=== PATIENT | male | born 1990 | race Caucasian/White ===

== ENCOUNTER 2017-08-29 00:51 | Emergency (ER) | payer SELFPAY ==
[2017-08-29 01:34] VITALS: BP 139/95
[2017-08-29 01:54] LABS: Basophils % (Auto) 0.9 % (0.0-1.8); Eosinophils % (Auto) 0.8 % (0.0-4.3); Hematocrit 50.8 % (35.5-45.6); Hemoglobin 17.5 gm/dl (11.8-15.2); Mean Corpuscular HGB Conc 34 % (32-34); Mean Corpuscular Hemoglobin 32 pg (28-32); Mean Corpuscular Volume 94 fl (84-94); Platelet Count 343 K/mm3 (140-440); Red Blood Count 5.43 M/mm3 (3.65-5.03); Red Cell Distribution Width 14.4 % (13.2-15.2); White Blood Count 9.1 K/mm3 (4.5-11.0)
[2017-08-29 02:10] LABS: Alanine Aminotransferase 16 units/L (7-56); Albumin 4.8 g/dL (3.9-5); Albumin/Globulin Ratio 1.3 %; Alkaline Phosphatase 80 units/L (35-129); Anion Gap 23 mmol/L; BUN/Creatinine Ratio 16; Blood Urea Nitrogen 11 mg/dL (9-20); Calcium 9.5 mg/dL (8.4-10.2); Carbon Dioxide 22 mmol/L (22-30); Chloride 99.4 mmol/L (98-107); Glucose 105 mg/dL (75-100); Lipase 20 units/L (13-60); Potassium 4.1 mmol/L (3.6-5.0); Sodium 140 mmol/L (137-145); Total Protein 8.5 g/dL (6.3-8.2)
== END 2017-08-29 05:00 | disposition left against medical advice (07) ==
LOC: ED 00:51
DX: R10.9 Unspecified abdominal pain (principal); Z53.21 Procedure and treatment not carried out due to patient leaving prior to being seen by health care provider
CPT/HCPCS: 36415; 80053; 83690; 85025

== ENCOUNTER 2020-02-04 20:27 | Emergency (ER) | payer SELFPAY ==
[2020-02-04 20:32] VITALS: BP 109/76
[2020-02-04 21:02] LABS: Basophils % (Auto) 0.3 % (0.0-1.8); Eosinophils # (Auto) 0.1 K/mm3 (0.0-0.4); Hematocrit 45.8 % (35.5-45.6); Hemoglobin 15.6 gm/dl (11.8-15.2); Lymphocytes # (Auto) 1.1 K/mm3 (1.2-5.4); Lymphocytes % (Auto) 13.7 % (13.4-35.0); Mean Corpuscular HGB Conc 34 % (32-34); Mean Corpuscular Volume 92 fl (84-94); Monocytes # (Auto) 0.2 K/mm3 (0.0-0.8); Monocytes % (Auto) 2.5 % (0.0-7.3); Platelet Count 326 K/mm3 (140-440); Red Blood Count 4.98 M/mm3 (3.65-5.03); Red Cell Distribution Width 14.2 % (13.2-15.2)
[2020-02-04 21:25] LABS: Alanine Aminotransferase 15 units/L (7-56); Albumin 4.9 g/dL (3.9-5); BUN/Creatinine Ratio 10; Blood Urea Nitrogen 10 mg/dL (9-20); Calcium 9.7 mg/dL (8.4-10.2); Hemolysis Index 6
--- NOTE | 2020-02-04 22:14 | XRay Report ---
CHEST 1 VIEW INDICATION: cough. COMPARISON: None FINDINGS: Support devices: None. Heart: Within normal limits. Lungs/Pleura: No acute air space or interstitial disease. Additional findings: None. IMPRESSION: 1. No acute findings. Signer Name: Vik Verma MD Signed: 02/04/2020 10:10 PM Workstation Name: [id number]
[2020-02-04] MEDS ORDERED: predniSONE 20 MG TAB PO ONE (22:48)
[2020-02-04] MEDS ORDERED: ACETAMINOPEN W/CODEINE 120-12MG ORAL LIQD 5 ML PO ONE (22:48)
[2020-02-04] MEDS ORDERED: FAMOTIDINE 20 MG/2 ML INJ IV ONE (23:08)
--- NOTE | 2020-02-04 23:24 | Emergency Department Report ---
ED Abdominal Pain HPI - General Chief Complaint: Abdominal Pain Stated Complaint: ABD PAIN Time Seen by Provider: 02/04/20 20:34 Source: patient Mode of arrival: Ambulatory Limitations: No Limitations - History of Present Illness Initial Comments: This is a 29-year-old male who presents the ED complaining of upper abdominal pain for the past couple of days. MD Complaint: abdominal pain - Related Data Previous Rx's Medication Instructions Recorded Last Taken Type Dicyclomine [Bentyl] 20 mg PO TID #20 tablet 02/05/20 Unknown Rx Famotidine [Pepcid] 20 mg PO BID #20 tablet 02/05/20 Unknown Rx Metoclopramide [Reglan] 10 mg PO TID #30 tab 02/05/20 Unknown Rx Allergies Allergy/AdvReac Type Severity Reaction Status Date / Time No Known Allergies Allergy Unverified 08/29/17 01:26 ED Review of Systems ROS: Stated complaint: ABD PAIN Other details as noted in HPI Comment: All other systems reviewed and negative ED Past Medical Hx - Past Medical History Previous Medical History?: No - Surgical History Past Surgical History?: No - Social History Smoking Status: Current Every Day Smoker Substance Use Type: None - Medications Home Medications: Home Medications Medication Instructions Recorded Confirmed Last Taken Type Dicyclomine [Bentyl] 20 mg PO TID #20 tablet 02/05/20 Unknown Rx Famotidine [Pepcid] 20 mg PO BID #20 tablet 02/05/20 Unknown Rx Metoclopramide [Reglan] 10 mg PO TID #30 tab 02/05/20 Unknown Rx ED Physical Exam - General Limitations: No Limitations ED Course Vital Signs 02/04/20 02/04/20 20:30 23:44 Temperature 99.4 F Pulse Rate 58 L Respiratory 22 15 Rate Blood Pressure 109/76 [Right] O2 Sat by Pulse 100 Oximetry ED Medical Decision Making - Lab Data Result diagrams: 02/04/20 20:49 02/04/20 20:49 - Radiology Data Radiology results: report reviewed, image reviewed CT abdomen wo con INDICATION / CLINICAL INFORMATION: abd pain w vomitting. TECHNIQUE: Axial CT imaging of abdomen and pelvis was obtained without contrast. Coronal and sagittal reformatted imaging obtained and reviewed. All CT scans at this location are performed using CT d ose reduction for ALARA by means of automated exposure control. COMPARISON: None available. FINDINGS: CT abdomen without contrast is somewhat limited due to the lack of IV contrast and very low body fat in this patient. Given this limitation, the liver, spleen, pancreas, kidneys, and adrenal glands appear grossly unremarkable. No intrarenal calculi or hydronephrosis identified. Gallbladder is present and without obvious abnormality. CT pelvis without contrast demonstrates a trace amount of free fluid in the posterior pelvis. No pelvic mass is identified. The appendix is partially visualized and appears unremarkable. Right inguinal hernia is present- there is fluid extending in the right inguinal canal possibly representing hydrocele. GI tract is grossly unremarkable although it is difficult to evaluate due to lack of contrast and body fat. Visualized lung bases are clear. No acute osseous abnormality identified. IMPRESSION: 1. Limited evaluation of the abdomen and pelvis due to the lack of IV/oral contrast and patient's lack of body fat. 2. Given this limitation, I do not see convincing evidence for acute process. There is a trace amount of free fluid in the posterior pelvis, nonspecific. CT abdomen/pelvis with IV and oral contrast can be performed if there is clinical suspicion warranting further evaluation. 3. incidental finding of right inguinal hernia. Small amount of fluid is present within the right inguinal hernia possibly representing fluid from hydrocele. Signer Name: Shani Coley MD Signed: 02/04/2020 11:42 PM Workstation Name: [id number] Transcribed By: Dictated By: Shani Coley MD Electronically Authenticated By: Shani Coley MD Signed Date/Time: 02/04/20 7012 CHEST 1 VIEW INDICATION: cough. COMPARISON: None FINDINGS: Support devices: None. Heart: Within normal limits. Lungs/Pleura: No acute air space or interstitial disease. Additional findings: None. IMPRESSION: 1. No acute findings. Signer Name: Vik Verma MD Signed: 02/04/2020 10:10 PM Workstation Name: [id number] Transcribed By: MITESH Dictated By: Vik Verma MD Electronically Authenticated By: Vik Verma MD Signed Date/Time: 02/04/20 8870 Critical care attestation.: If time is entered above; I have spent that time in minutes in the direct care of this critically ill patient, excluding procedure time. ED Disposition Clinical Impression: Gastritis, Gastroenteritis Disposition: DC-01 TO HOME OR SELFCARE Is pt being admited?: No Does the pt Need Aspirin: No Condition: Stable Instructions: Gastroenteritis (ED), Acute Nausea and Vomiting (ED), Gastroesophageal Reflux in Children (ED), Gastritis (ED) Additional Instructions: Make sure to follow up with the primary care physician as discussed. Take all your medications as you've been prescribed. If you have any worsening symptoms or develop new symptoms please return to ED immediately. Prescriptions: Dicyclomine [Bentyl] 20 mg PO TID #20 tablet Famotidine [Pepcid] 20 mg PO BID #20 tablet Metoclopramide [Reglan] 10 mg PO TID #30 tab Referrals: PRIMARY CARE,MD [Primary Care Provider] - 3-5 Days [facility] [Provider Group] - 3-[address] [facility] [Provider Group] - 3-5 Days Forms: Accompanied Note, Work/School Release Form(ED) Time of Disposition: 01:09
[2020-02-04] MEDS ORDERED: SODIUM CHLORIDE 0.9% 1000 ML 1,000 ML IV ONE (23:37)
[2020-02-04] MEDS ORDERED: SODIUM CHLORIDE 0.9% 1000 ML 1,000 ML ONE (23:38)
[2020-02-04] MEDS: METOCLOPRAMIDE 10 MG/2 ML INJ IV ONE (23:42)
--- NOTE | 2020-02-04 23:46 | Cat Scan Report ---
CT abdomen wo con INDICATION / CLINICAL INFORMATION: abd pain w vomitting. TECHNIQUE: Axial CT imaging of abdomen and pelvis was obtained without contrast. Coronal and sagittal reformatte d imaging obtained and reviewed. All CT scans at this location are performed using CT dose reduction for ALARA by means of automated exposure control. COMPARISON: None available. FINDINGS: CT abdomen without contrast is somewhat limited due to the lack of IV contrast and very low body fat in this patient. Given this limitation, the liver, spleen, pancreas, kidneys, and adrenal glands appe ar grossly unremarkable. No intrarenal calculi or hydronephrosis identified. Gallbladder is present a nd without obvious abnormality. CT pelvis without contrast demonstrates a trace amount of free fluid in the posterior pelvis. No pelv ic mass is identified. The appendix is partially visualized and appears unremarkable. Right inguinal hernia is present-there is fluid extending in the right inguinal canal possibly representing hydrocele. GI tract is grossly unremarkable although it is difficult to evaluate due to lack of contrast and bod y fat. Visualized lung bases are clear. No acute osseous abnormality identified. IMPRESSION: 1. Limited evaluation of the abdomen and pelvis due to the lack of IV/oral contrast and patient's lac k of body fat. 2. Given this limitation, I do not see convincing evidence for acute process. There is a trace amount of free fluid in the posterior pelvis, nonspecific. CT abdomen/pelvis with IV and oral contrast can be performed if there is clinical suspicion warranting further evaluation. 3. incidental finding of right inguinal hernia. Small amount of fluid is present within the right ing uinal hernia possibly representing fluid from hydrocele. Signer Name: Shani Coley MD Signed: 02/04/2020 11:42 PM Workstation Name: [id number]
== END 2020-02-05 01:42 | disposition home or self-care (01) ==
LOC: ED 20:27
DX: K29.60 Other gastritis without bleeding (principal); K52.9 Noninfective gastroenteritis and colitis, unspecified; F17.200 Nicotine dependence, unspecified, uncomplicated; Z79.899 Other long term (current) drug therapy
CPT/HCPCS: 36415; 71045; 74150; 80053; 85025; 96361; 96374; 96375; 99284; J2765; J7030; J7512

== ENCOUNTER 2021-01-28 20:27 | Emergency (ER) | payer SELFPAY ==
[2021-01-28 23:02] LABS: Basophils # (Auto) 0.1 K/mm3 (0.0-0.1); Basophils % (Auto) 0.8 % (0.0-1.8); Eosinophils % (Auto) 0.1 % (0.0-4.3); Hematocrit 49.2 % (35.5-45.6); Hemoglobin 16.8 gm/dl (11.8-15.2); Lymphocytes # (Auto) 1.4 K/mm3 (1.2-5.4); Lymphocytes % (Auto) 14.8 % (13.4-35.0); Mean Corpuscular HGB Conc 34 % (32-34); Mean Corpuscular Volume 94 fl (84-94); Monocytes # (Auto) 0.5 K/mm3 (0.0-0.8); Monocytes % (Auto) 4.9 % (0.0-7.3); Platelet Count 325 K/mm3 (140-440); Red Blood Count 5.22 M/mm3 (3.65-5.03); Red Cell Distribution Width 14.7 % (13.2-15.2)
[2021-01-28 23:10] LABS: Bacteria,Urine 1+ /HPF (Negative); Bilirubin,Urine NEG (Negative); Blood,Urine NEG (Negative); Color,Urine Amber (Yellow); Mucus,Urine 3+ /HPF; Urobilinogen,Urine < 2.0 mg/dL (<2.0)
[2021-01-28 23:15] LABS: Alanine Aminotransferase 18 units/L (7-56); Albumin 5.2 g/dL (3.9-5); BUN/Creatinine Ratio 11; Blood Urea Nitrogen 10 mg/dL (9-20); Calcium 9.8 mg/dL (8.4-10.2); Hemolysis Index 57
[2021-01-28 23:53] VITALS: BP 139/96
--- NOTE | 2021-01-29 10:06 | Electrocardiograph Report ---
[facility] Test Date: 2021-01-28 Test Time: 22:21:31 Pat Name: MICHELINE STERN Department: Room: Gender: M Maintenance Supervisor Mechanical: KALPANA : 1990 Requested By: DAVID HERNANDEZ Order Number: [id number] Reading MD: Kathrin Drake Measurements Intervals [place] Rate: 67 P: 49 TX: 149 QRS: 95 QRSD: 86 T: 73 QT: 394 QTc: 416 Interpretive Statements Sinus rhythm No previous ECG available for comparison Electronically Signed On 01-29-2021 10:05:29 EDT by Kathrin Drake
== END 2021-01-29 02:00 | disposition left against medical advice (07) ==
LOC: ED 20:27
DX: R11.2 Nausea with vomiting, unspecified (principal); Z53.21 Procedure and treatment not carried out due to patient leaving prior to being seen by health care provider
CPT/HCPCS: 36415; 80053; 81001; 83690; 85025; 93005